=== PATIENT | female | born 1985 | race American Indian/Alaskan Native ===

== ENCOUNTER 2018-03-09 13:56 | Emergency (ER) | payer OTHER ==
[2018-03-09 14:09] VITALS: BP 127/84
[2018-03-09] MEDS ORDERED: NORCO 5/325 PO STA (15:45)
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
== END 2018-03-09 16:54 | disposition home or self-care (01) ==
LOC: ED 13:56
DX: S16.1XXA Strain of muscle, fascia and tendon at neck level, initial encounter (principal); M79.10 Myalgia, unspecified site; F17.200 Nicotine dependence, unspecified, uncomplicated; V29.1 Motorcycle passenger injured in collision with other and unspecified motor vehicles in nontraffic accident; Y93.89 Activity, other specified; Y92.488 Other paved roadways as the place of occurrence of the external cause; Y99.8 Other external cause status
CPT/HCPCS: 99282

== ENCOUNTER 2018-12-12 11:54 | Emergency (ER) | payer SELFPAY ==
--- NOTE | 2018-12-12 12:13 | Emergency Department Report ---
Blank Doc - Documentation Documentation: Treated for Trich 1 month ago and symptoms returned. N
[2018-12-12 12:18] VITALS: BP 140/62
== END 2018-12-12 13:35 | disposition home or self-care (01) ==
LOC: ED 11:54
DX: N89.8 Other specified noninflammatory disorders of vagina (principal)
CPT/HCPCS: 99281